=== PATIENT | male | born 1950 | race Caucasian/White ===

== ENCOUNTER → 2021-05-06 | Day surgery (SDC) | payer MEDICARE, BC ==
[~2021-05-06] MED LIST: Ketamine 200 MG/20 ML MDV ONE; Propofol 200 MG/20 ML SDV ONE; fentaNYL 100 MCG/2 ML SDV ONE
[2021-05-06] MEDS: Lactated Ringers 1,000 ML IV SCH (08:15)
[2021-05-06 09:56] VITALS: BP 111/76; PULSE 49
--- NOTE | 2021-05-06 12:45 | OR ---
DATE OF OPERATION: 05/06/2021 PREOPERATIVE DIAGNOSIS: HISTORY OF POLYPS. POSTOPERATIVE DIAGNOSIS: HISTORY OF POLYPS. SURGEON: Yury Reid MD PROCEDURE: DIAGNOSTIC COLONOSCOPY. ANESTHESIA: MAC. COMPLICATIONS: None. SPECIMEN: None. FINDINGS: 1. Full-length diagnostic colonoscopy. 2. No signs of polyp recurrence. RECOMMENDATIONS: Followup colonoscopy in 10 years. INDICATIONS: The patient has a prior history of colonoscopy with polyp removal, a 5-year followup was recommended. DESCRIPTION OF PROCEDURE: The patient was prepped and draped, placed in the left lateral decubitus position. A lubricated Olympus colonoscope was inserted and easily advanced to the cecum. Direct visualization of ileocecal valve and appendiceal orifice was accomplished. The bowel prep was adequate. Upon withdrawal of the scope, throughout the entire length of the colon, I could find no polyps, masses, ulceration, or bleeding sites. No vascular abnormalities or signs of colitis. There were no significant diverticula. The rectal vault appeared benign. Retroflexion of the scope in the rectum showed no anal lesions. Air was suctioned, scope removed without complication. NINFA/BARBY /[id number]
== END ==
LOC: CC.SDS 10:31
PROVIDERS: ATTEND Family Medicine
DX: Z12.11 Encounter for screening for malignant neoplasm of colon (principal); Z86.010 Personal history of colon polyps; I10 Essential (primary) hypertension; Z79.899 Other long term (current) drug therapy; Z87.891 Personal history of nicotine dependence; E78.5 Hyperlipidemia, unspecified; E55.9 Vitamin D deficiency, unspecified; Z90.49 Acquired absence of other specified parts of digestive tract
CPT/HCPCS: 00811; G0105; J2704; J3010; J7120